=== PATIENT | female | born 1985 | race Caucasian/White ===

== ENCOUNTER 2017-04-26 16:07 | Emergency (ER) | payer OTHER ==
[2017-04-26 16:18] VITALS: BP 133/87; PULSE 77; RESP 16; TEMP 98.1
--- NOTE | 2017-04-26 16:34 | ED ---
Recheck HPI - General Chief Complaint: Recheck/Abnormal Lab/Rx Stated Complaint: Needs meds filled Time Seen by Provider: 04/26/17 16:12 Source: patient, RN notes reviewed, old records reviewed Mode of arrival: ambulatory Limitations: no limitations - History of Present Illness Initial Comments: This is a 31-year-old female presenting to the emergency department with chief complaint of needing a medication refill. Patient reports that she has a refill of him 300 mg 3 times a day as well as Synthroid 20 g. Patient reports she also suffers from severe anxiety. She reports that she was recently discharged from [facility] and was battling diction for benzodiazepines and alcohol. Patient reports that now that she is in a [address] [place]. Patient reports that she does not want be prescribed anything instructed to give she needs help with her anxiety. She reports that she's been helped with clonidine while [facility]. Patient reports that she has no suicidal or homicidal thoughts. She was reports occasional she'll have severe anxiety attack.Patient denies any recent fever, chills, shortness of breath, chest pain , back pain, abdominal pain, nausea vomiting, numbness or tingling, dysuria or hematuria, constipation or diarrhea, headaches or visual changes, or any other current symptoms - Related Data Home Medications Medication Instructions Recorded Confirmed Levothyroxine Sodium [Synthroid] 25 mcg PO DAILY 04/26/17 04/26/17 [place] Carbonate 300 mg PO TID 04/26/17 04/26/17 Previous Rx's Medication Instructions Recorded Levothyroxine Sodium [Synthroid] 25 mcg PO DAILY #10 tab 04/26/17 [place] Carbonate 300 mg PO TID #30 capsule 04/26/17 cloNIDine HCL [Catapres] 0.1 mg PO BID #12 tab 04/26/17 Allergies Allergy/AdvReac Type Severity Reaction Status Date / Time amoxicillin Allergy Rash/Hives Verified 04/26/17 16:19 latex Allergy Rash/Hives Verified 04/26/17 16:19 Penicillins Allergy Rash/Hives Verified 04/26/17 16:19 Review of Systems ROS Statement: Those systems with pertinent positive or pertinent negative responses have been documented in the HPI. ROS Other: All systems not noted in ROS Statement are negative. Past Medical History Past Medical History: Thyroid Disorder History of Any Multi-Drug Resistant Organisms: None Reported Additional Past Surgical History / Comment(s): alopecia replacement surgery Past Psychological History: No Psychological Hx Reported Smoking Status: Current every day smoker Past Alcohol Use History: None Reported Past Drug Use History: None Reported General Exam - General Exam Comments Initial Comments: Pleasant 31-year-old female. No acute distress. Limitations: no limitations General appearance: alert, in no apparent distress Head exam: Present: atraumatic, normocephalic, normal inspection Eye exam: Present: normal appearance, PERRL, EOMI. Absent: scleral icterus, conjunctival injection, periorbital swelling ENT exam: Present: normal exam, mucous membranes moist Neck exam: Present: normal inspection. Absent: tenderness, meningismus, lymphadenopathy Respiratory exam: Present: normal lung sounds bilaterally. Absent: respiratory distress, wheezes, rales, rhonchi, stridor Cardiovascular Exam: Present: regular rate, normal rhythm, normal heart sounds. Absent: systolic murmur, diastolic murmur, rubs, gallop, clicks GI/Abdominal exam: Present: soft, normal bowel sounds. Absent: distended, tenderness, guarding, rebound, rigid Extremities exam: Present: normal inspection, full ROM, normal capillary refill. Absent: tenderness, pedal edema, joint swelling, calf tenderness Back exam: Present: normal inspection Neurological exam: Present: alert, oriented X3, CN II-XII intact Psychiatric exam: Present: normal affect, normal mood Skin exam: Present: warm, dry, intact, normal color. Absent: rash Course Vital Signs 04/26/17 16:14 Temperature 98.1 F Pulse Rate 77 Respiratory 16 Rate Blood Pressure 133/87 O2 Sat by Pulse 98 Oximetry Medical Decision Making - Medical Decision Making This is a 31-year-old female presenting to the emergency department with chief complaint of needing a medication refill. Patient reports that she has a refill of him 300 mg 3 times a day as well as Synthroid 20 g. Patient reports she also suffers from severe anxiety. She reports that she was recently discharged from [facility] and was battling diction for benzodiazepines and alcohol. Patient reports that now that she is in a [place] [place]. Patient reports that she does not want be prescribed anything instructed to give she needs help with her anxiety. Patient will be given a one-week refill for the falling medications from lithium, Synthroid and clonidine. Patient advised to follow-up with counseling services and psychiatrist. Patient understands treatment plan will comply. Return parameters were discussed. Discussed this case with Dr. Angel. Disposition Clinical Impression: Encounter for medication refill, Anxiety Disposition: HOME SELF-CARE Condition: Good Instructions: Anxiety (ED), Medicine Refill (ED) Additional Instructions: Patient advised to follow up with [facility] and psychiatrist. Patient advised to follow-up with a primary care provider as well for further medication refill. Return to the emergency department if any alarming signs or symptoms occur. Prescriptions: cloNIDine HCL [Catapres] 0.1 mg PO BID #12 tab Levothyroxine Sodium [Synthroid] 25 mcg PO DAILY #10 tab [place] Carbon[place] 300 mg PO TID #30 capsule Referrals: Miguelito Bustamante MD [STAFF PHYSICIAN] - 1-2 days Teresa Serrano MD [STAFF PHYSICIAN] - 1-2 days Time of Disposition: 16:30
== END 2017-04-26 16:38 | disposition home or self-care (01) ==
LOC: EC 16:07
DX: F41.9 Anxiety disorder, unspecified (principal); Z76.0 Encounter for issue of repeat prescription; E07.9 Disorder of thyroid, unspecified; F17.200 Nicotine dependence, unspecified, uncomplicated; Z79.899 Other long term (current) drug therapy; Z88.0 Allergy status to penicillin; Z91.040 Latex allergy status
CPT/HCPCS: 99282

== ENCOUNTER 2017-05-03 16:14 | Emergency (ER) | payer OTHER ==
[2017-05-03 16:38] VITALS: BP 123/73; PULSE 68; RESP 16; TEMP 97.5
--- NOTE | 2017-05-03 16:53 | ED ---
Back Pain HPI - General Chief Complaint: Back Pain/Injury Stated Complaint: Back Pain Time Seen by Provider: 05/03/17 16:43 Source: patient, RN notes reviewed Limitations: no limitations - History of Present Illness Initial Comments: 31-year-old female presents emergency Department chief complaint of back pain. Patient states that she remembers at work she went to move apart caught her foot on the rubber matting states that she twisted wrong. She states she has mid back pain. It is neck pain or any focal weakness. Patient states that she has had problems with back the past. She has not tried any heat or ice. She tried smoker medications no relief. worse with movement and better at rest. Denies any - Related Data Home Medications Medication Instructions Recorded Confirmed Levothyroxine Sodium [Synthroid] 25 mcg PO DAILY 04/26/17 04/26/17 [place] Carbonate 300 mg PO TID 04/26/17 04/26/17 Previous Rx's Medication Instructions Recorded Levothyroxine Sodium [Synthroid] 25 mcg PO DAILY #10 tab 04/26/17 [place] Carbonate 300 mg PO TID #30 capsule 04/26/17 cloNIDine HCL [Catapres] 0.1 mg PO BID #12 tab 04/26/17 Cyclobenzaprine [Flexeril] 10 mg PO TID PRN #15 tab 05/03/17 methylPREDNISolone [Medrol Dose 4 mg PO DIRECTED #1 pack 05/03/17 Pack] traMADol HCl [Ultram] 50 mg PO Q6H PRN #20 tab 05/03/17 Allergies Allergy/AdvReac Type Severity Reaction Status Date / Time amoxicillin Allergy Rash/Hives Verified 05/03/17 16:38 latex Allergy Rash/Hives Verified 05/03/17 16:38 Penicillins Allergy Rash/Hives Verified 05/03/17 16:38 Review of Systems ROS Statement: Those systems with pertinent positive or pertinent negative responses have been documented in the HPI. ROS Other: All systems not noted in ROS Statement are negative. Past Medical History Past Medical History: Thyroid Disorder History of Any Multi-Drug Resistant Organisms: None Reported Additional Past Surgical History / Comment(s): alopecia replacement surgery Past Psychological History: No Psychological Hx Reported Smoking Status: Current every day smoker Past Alcohol Use History: None Reported Past Drug Use History: None Reported General Exam Limitations: no limitations General appearance: alert, in no apparent distress Head exam: Present: atraumatic, normocephalic, normal inspection Neck exam: Present: normal inspection. Absent: tenderness, meningismus, lymphadenopathy Respiratory exam: Present: normal lung sounds bilaterally. Absent: respiratory distress, wheezes, rales, rhonchi, stridor, chest wall tenderness Cardiovascular Exam: Present: regular rate, normal rhythm, normal heart sounds. Absent: systolic murmur, diastolic murmur, rubs, gallop, clicks Extremities exam: Present: normal inspection, full ROM, normal capillary refill. Absent: tenderness, pedal edema, joint swelling, calf tenderness Back exam: Present: normal inspection, full ROM, tenderness (Mild/moderate tenderness of the thoracic region with paraspinous no particular tenderness), muscle spasm, paraspinal tenderness. Absent: vertebral tenderness Neurological exam: Present: alert, oriented X3, CN II-XII intact, reflexes normal. Absent: motor sensory deficit Skin exam: Present: warm, dry, intact, normal color. Absent: rash Course Vital Signs 05/03/17 16:36 Temperature 97.5 F L Pulse Rate 68 Respiratory 16 Rate Blood Pressure 123/73 O2 Sat by Pulse 100 Oximetry Medical Decision Making - Medical Decision Making 31-year-old female presented for mid back pain. Patient has a thoracic strain. Patient we treated with Medrol Dosepak, tramadol and Flexeril this time. She is a advised to apply heat and ice. Patient given a work no for tomorrow. Return parameters were discussed. Disposition Clinical Impression: Strain of thoracic region, Back pain Disposition: HOME SELF-CARE Condition: Stable Instructions: Thoracic Back Strain (ED) Additional Instructions: Please return to the Emergency Department if symptoms worsen or any other concerns. Prescriptions: Cyclobenzaprine [Flexeril] 10 mg PO TID PRN #15 tab PRN Reason: Muscle Spasm methylPREDNISolone [Medrol Dose Pack] 4 mg PO DIRECTED #1 pack traMADol HCl [Ultram] 50 mg PO Q6H PRN #20 tab PRN Reason: Pain Referrals: None,Stated [Primary Care Provider] - 1-2 days Time of Disposition: 16:53
== END 2017-05-03 17:01 | disposition home or self-care (01) ==
LOC: EC 16:14
DX: S29.012A Strain of muscle and tendon of back wall of thorax, initial encounter (principal); E07.9 Disorder of thyroid, unspecified; F17.200 Nicotine dependence, unspecified, uncomplicated; Z88.0 Allergy status to penicillin; Z91.040 Latex allergy status; Z79.899 Other long term (current) drug therapy; X50.1XXA Overexertion from prolonged static or awkward postures, initial encounter
CPT/HCPCS: 99283

== ENCOUNTER 2017-07-09 17:00 | Emergency (ER) | payer OTHER ==
[2017-07-09 17:20] VITALS: BP 144/90; PULSE 71; RESP 18; TEMP 98.2
[2017-07-09] MEDS ORDERED: IBUPROFEN 600 MG TAB PO STA (17:29)
--- NOTE | 2017-07-09 17:36 | ED ---
General Adult HPI - General Chief complaint: Extremity Injury, Upper Stated complaint: right arm loss of feeling Time Seen by Provider: 07/09/17 17:20 Source: patient Mode of arrival: ambulatory Limitations: no limitations - History of Present Illness Initial comments: 32-year-old female patient presents to emergency department today with complaints of right forearm and hand paresthesia. Patient states that last night when she went to bed she started to have a pins and needles sensation from about senior living down her forearm to her entire hand. Patient states that it bothered her throughout the night and that she could barely sleep. Patient states that the symptoms continued today so she presented for evaluation. Patient denies any injury to the arm or hand. 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 She denies any pain however states that the pins and needle sensation is very uncomfortable for her. Patient denies any limitation range of motion. She denies any other symptoms including dizziness, weakness, headache, neck pain, chest pain, shortness of breath, abdominal pain, nausea, or vomiting. She denies any history of similar symptoms. - Related Data Home Medications Medication Instructions Recorded Confirmed Levothyroxine Sodium [Synthroid] 25 mcg PO DAILY 04/26/17 04/26/17 [place] Carbonate 300 mg PO TID 04/26/17 04/26/17 Previous Rx's Medication Instructions Recorded Levothyroxine Sodium [Synthroid] 25 mcg PO DAILY #10 tab 04/26/17 [place] Carbonate 300 mg PO TID #30 capsule 04/26/17 cloNIDine HCL [Catapres] 0.1 mg PO BID #12 tab 04/26/17 Cyclobenzaprine [Flexeril] 10 mg PO TID PRN #15 tab 05/03/17 methylPREDNISolone [Medrol Dose 4 mg PO DIRECTED #1 pack 05/03/17 Pack] traMADol HCl [Ultram] 50 mg PO Q6H PRN #20 tab 05/03/17 Ibuprofen [Motrin] 600 mg PO Q6HR PRN #20 tab 07/09/17 Allergies Allergy/AdvReac Type Severity Reaction Status Date / Time amoxicillin Allergy Rash/Hives Verified 07/09/17 17:20 latex Allergy Rash/Hives Verified 07/09/17 17:20 Penicillins Allergy Rash/Hives Verified 07/09/17 17:20 Review of Systems ROS Statement: Those systems with pertinent positive or pertinent negative responses have been documented in the HPI. ROS Other: All systems not noted in ROS Statement are negative. Past Medical History Past Medical History: Thyroid Disorder History of Any Multi-Drug Resistant Organisms: None Reported Additional Past Surgical History / Comment(s): alopecia replacement surgery Past Psychological History: Anxiety, Bipolar, PTSD Smoking Status: Current every day smoker Past Alcohol Use History: Daily, Occasional Past Drug Use History: None Reported General Exam Limitations: no limitations General appearance: alert, in no apparent distress Eye exam: Present: normal appearance, PERRL, EOMI. Absent: scleral icterus, conjunctival injection, periorbital swelling ENT exam: Present: normal exam, mucous membranes moist Neck exam: Present: normal inspection, full ROM. Absent: tenderness, meningismus, lymphadenopathy Respiratory exam: Present: normal lung sounds bilaterally. Absent: respiratory distress, wheezes, rales, rhonchi, stridor Cardiovascular Exam: Present: regular rate, normal rhythm, normal heart sounds. Absent: systolic murmur, diastolic murmur, rubs, gallop, clicks Extremities exam: Present: normal inspection, full ROM, normal capillary refill , other (Negative Phalen's and Tinel test. Patient states no change in sensation regardless of position. ). Absent: tenderness, pedal edema, joint swelling, calf tenderness Neurological exam: Present: alert, oriented X3, CN II-XII intact Psychiatric exam: Present: normal affect, normal mood Skin exam: Present: warm, dry, intact, normal color. Absent: rash Course Vital Signs 07/09/17 17:16 Temperature 98.2 F Pulse Rate 71 Respiratory 18 Rate Blood Pressure 144/90 Medical Decision Making - Medical Decision Making 32-year-old female patient presented to emergency department today for evaluation of right arm paresthesia. Patient had no injury, reports no swelling , redness, erythema, fever, or chills. Physical exam is unremarkable. NIHHS is negative. Patient discharged home with anti-inflammatory ibuprofen. Also, patient does have a with her primary care physician in 2 days. Instructed patient to follow-up with the pediatric's in 1-2 days for recheck. Patient instructed to rest the arm and hand. It offered to give patient a note for work stating that she needs to limit the use of her right hand however she refused this. Injected to return immediately for any new, worsening, or concerning symptoms. Disposition Clinical Impression: Arm paresthesia, right Disposition: HOME SELF-CARE Condition: Good Instructions: Paresthesia (ED) Additional Instructions: Rest right arm. Take ibuprofen for anti-inflammatory effect. Follow-up with primary care physician for recheck as you have scheduled on 07/11/2017. Prescriptions: Ibuprofen [Motrin] 600 mg PO Q6HR PRN #20 tab PRN Reason: Pain Referrals: Nicole Tejada MD [Primary Care Provider] - 1-2 days Jourdan Ruiz DO [Doctor of Osteopathic Medicine] - 1-2 days Time of Disposition: 17:36
== END 2017-07-09 17:55 | disposition home or self-care (01) ==
LOC: EC 17:00
DX: R20.2 Paresthesia of skin (principal); E07.9 Disorder of thyroid, unspecified; F31.9 Bipolar disorder, unspecified; F17.200 Nicotine dependence, unspecified, uncomplicated; Z79.899 Other long term (current) drug therapy; Z88.0 Allergy status to penicillin; Z91.040 Latex allergy status
CPT/HCPCS: 99283

== ENCOUNTER → 2017-07-25 | Outpatient (CLI) | payer OTHER ==
--- NOTE | 2017-07-25 23:27 | MR ---
EXAMINATION TYPE: MR elbow RT wo con DATE OF EXAM: 07/25/2017 COMPARISON: NONE HISTORY: Limited ROM, Numbness, x2 weeks Standard multiplanar, multisequence MRI departmental protocol Multiplanar, multisequence images of the right elbow were acquired. FINDINGS: The joint spaces are fairly well-maintained. There is a minimal elbow joint effusion. The b iceps tendon is intact. Triceps tendon is intact. There is no evidence of a fracture. I see no bony d estructive process. There is no evidence of a soft tissue mass. Brachialis tendon is intact. IMPRESSION: Small elbow joint effusion. Otherwise negative exam. This could relate to synovitis.
== END | disposition home or self-care (01) ==
LOC: RADMRIMAIN 19:34
PROVIDERS: ATTEND Nurse Practitioner Family
DX: M25.421 Effusion, right elbow (principal)

== ENCOUNTER 2017-08-13 14:44 | Emergency (ER) | payer BC, OTHER ==
[2017-08-13 15:12] VITALS: BP 121/89; PULSE 92; RESP 18; TEMP 98.3
[2017-08-13] MEDS ORDERED: traMADol 50 MG STARTER PACK 3 TAB BTL PO STA (16:07)
--- NOTE | 2017-08-13 16:07 | ED ---
General Adult HPI - General Chief complaint: Extremity Injury, Upper Stated complaint: left wrist pain Time Seen by Provider: 08/13/17 15:17 Source: patient, RN notes reviewed Mode of arrival: ambulatory Limitations: no limitations - History of Present Illness Initial comments: 32-year-old female presents to the emergency department with a chief complaint of left wrist pain. Patient states she was formerly last night and she hit her left wrist on the truck and has since had pain and swelling. Patient denies any nausea or vomiting with this. Patient denies any head injury. Patient denies any injury from the incident other than left wrist. Patient has no swelling and pain with movement of the wrist that she thought that she should be evaluated.Patient denies any recent fever, chills, shortness of breath, chest pain, back pain, abdominal pain, nausea vomiting, numbness or tingling, dysuria or hematuria, constipation or diarrhea, headaches or visual changes, or any other current symptoms. - Related Data Home Medications Medication Instructions Recorded Confirmed Levothyroxine Sodium [Synthroid] 25 mcg PO DAILY 04/26/17 04/26/17 [place] Carbonate 300 mg PO TID 04/26/17 04/26/17 Previous Rx's Medication Instructions Recorded Levothyroxine Sodium [Synthroid] 25 mcg PO DAILY #10 tab 04/26/17 [place] Carbonate 300 mg PO TID #30 capsule 04/26/17 cloNIDine HCL [Catapres] 0.1 mg PO BID #12 tab 04/26/17 Cyclobenzaprine [Flexeril] 10 mg PO TID PRN #15 tab 05/03/17 methylPREDNISolone [Medrol Dose 4 mg PO DIRECTED #1 pack 05/03/17 Pack] traMADol HCl [Ultram] 50 mg PO Q6H PRN #20 tab 05/03/17 Ibuprofen [Motrin] 600 mg PO Q6HR PRN #20 tab 07/09/17 traMADol HCl [Ultram] 50 mg PO Q6H PRN #20 tab 08/13/17 Allergies Allergy/AdvReac Type Severity Reaction Status Date / Time amoxicillin Allergy Rash/Hives Verified 08/13/17 15:12 latex Allergy Rash/Hives Verified 08/13/17 15:12 Penicillins Allergy Rash/Hives Verified 08/13/17 15:12 Review of Systems ROS Statement: Those systems with pertinent positive or pertinent negative responses have been documented in the HPI. ROS Other: All systems not noted in ROS Statement are negative. Past Medical History Past Medical History: Thyroid Disorder History of Any Multi-Drug Resistant Organisms: None Reported Additional Past Surgical History / Comment(s): alopecia replacement surgery Past Psychological History: Anxiety, Bipolar, PTSD Smoking Status: Current every day smoker Past Alcohol Use History: Daily, Occasional Past Drug Use History: None Reported General Exam - General Exam Comments Initial Comments: General: The patient is awake and alert, in no distress, and does not appear acutely ill. Neck: The neck is supple, there is no tenderness. Cardiovascular: There is a regular rate and rhythm. No murmur, rub or gallop is appreciated. Respiratory: Lungs are clear to auscultation, respirations are non-labored, breath sounds are equal. No wheezes, stridor, rales, or rhonchi. Musculoskeletal: Sensation intact. 2+ pulses at the left upper extremity. Patient is tenderness along the left hand. No anatomical snuffbox tenderness. Pain with range of motion of left thumb. Pain along the radius. No pain along the ulna. No pain to palpation of left elbow with full range motion. Patient has pain with any range of motion of the left wrist. Neurological: CN II-XII intact, There are no obvious motor or sensory deficits. Coordination appears grossly intact. Speech is normal. Skin: Skin is warm and dry and no rashes or lesions are noted. Psychiatric: Normal mood and affect. Limitations: no limitations Course Vital Signs 08/13/17 15:09 Temperature 98.3 F Pulse Rate 92 Respiratory 18 Rate Blood Pressure 121/89 O2 Sat by Pulse 97 Oximetry Procedures - Orthopedic Splinting/Casting Injury #1 Side: left Upper Extremity Injury Location: wrist Upper Extremity Immobilizer: thumb spica (short arm) Medical Decision Making - Medical Decision Making 31-year-old female presents emergency room chief complaint of left wrist pain. At this time shows. Fracture. She was placed in a splint. Discussed follow- up with orthopedic discussed return parameters all the questions. They stated they understood and they're negative plan. All cushions have been answered. They will be discharged. - Radiology Data Radiology results: report reviewed, image reviewed Disposition Clinical Impression: Left wrist fracture Disposition: HOME SELF-CARE Condition: Stable Instructions: Wrist Fracture in Adults (ED) Additional Instructions: Please use medication as discussed. Please follow up with family doctor if symptoms have not improved over the next two days. Please return to the emergency room if your symptoms increase or worsen or for any other concerns. Prescriptions: traMADol HCl [Ultram] 50 mg PO Q6H PRN #20 tab PRN Reason: Pain Referrals: Nicole Tejada MD [Primary Care Provider] - 1-2 days Bennie Kaur MD [STAFF PHYSICIAN] - 1-2 days Time of Disposition: 16:09
--- NOTE | 2017-08-13 16:07 | XR ---
EXAMINATION TYPE: XR wrist complete LT DATE OF EXAM: 08/13/2017 CLINICAL HISTORY: Wrist pain after jamming injury TECHNIQUE: Frontal, lateral and oblique images of the left wrist are obtained. COMPARISON: None FINDINGS: Transcortical lucency is seen of the volar and lateral aspect of the radius, favored to rep resent a vascular groove is no deformity or associated extension towards the second cortical surface is appreciated. Overlying soft tissue swelling is appreciated as planes are maintained. Carpal bones maintain normal alignment. No other areas suspicious for fracture are seen. IMPRESSION: Volar and lateral distal radial transcortical lucency favored to represent a vascular curt ove. Repeat radiograph is recommended in 7-10 days as well as correlation for point tenderness.
== END 2017-08-13 16:24 | disposition home or self-care (01) ==
LOC: EC 14:44
DX: S52.502A Unspecified fracture of the lower end of left radius, initial encounter for closed fracture (principal); E07.9 Disorder of thyroid, unspecified; F17.200 Nicotine dependence, unspecified, uncomplicated; Z79.899 Other long term (current) drug therapy; Z88.0 Allergy status to penicillin; Z91.040 Latex allergy status; V58.7XXA Person on outside of pick-up truck or van injured in noncollision transport accident in traffic accident, initial encounter; Y92.410 Unspecified street and highway as the place of occurrence of the external cause
CPT/HCPCS: 29125; 99283